=== PATIENT | male | born 1990 | race Caucasian/White ===

== ENCOUNTER 2020-11-11 07:53 | Emergency (ER) | payer BC ==
[2020-11-11] MEDS ORDERED: Sodium Chloride 0.9% 10 ML Syringe FLUSH PRN (08:31)
[2020-11-11] MEDS ORDERED: cefTRIAXone 2 GM in Sodium Chloride 0.9% 100 ML IV ONE (08:32)
--- NOTE | 2020-11-11 08:43 | EDM.PDOC ---
ED HPI GENERAL MEDICAL PROBLEM - General Chief Complaint: Skin Complaint Stated Complaint: LEFT EYE AND RT INDEX FINGER SWELLING Time Seen by Provider: 11/11/20 08:16 Source of Information: Reports: Patient, RN Notes Reviewed - History of Present Illness INITIAL COMMENTS - FREE TEXT/NARRATIVE: 30 yr old male with swollen inflamed painful R finger. This started about 2 or 3 days ago, has gotten much worse yesterday and today. Was seen a [facility] yesterday, started on amox. He scrapped his L leg, deep abrasion playing softball about 5 days ago. That has also been red, inflamed, quite uncomfortable. He has had some chills, night sweats, scrathy throat. This AM noticed medial L eye is all red. Not aware of any injury to the eye. Right Finger-Index Pain Score (Numeric/FACES): 8 Left Lower Leg Pain Score (Numeric/FACES): 8 - Related Data Allergies Allergy/AdvReac Type Severity Reaction Status Date / Time No Known Allergies Allergy Verified 11/11/20 08:15 Home Meds: Home Meds Amoxicillin/Potassium Clav [Amox-Clav 500-125 mg Tablet] 1 each PO DAILY 05/03 [History] Sulfamethoxazole/Trimethoprim [Bactrim Ds Tablet] 1 each PO BID #14 tablet 11/11/20 [Rx] cephALEXin [Cephalexin] 500 mg PO QID #40 capsule 11/11/20 [Rx] Past Medical History - Past Health History Medical/Surgical History: Denies Medical/Surgical History Social & Family History - Tobacco Use Tobacco Use Status *Q: Never Tobacco User - Recreational Drug Use Recreational Drug Use: No ED ROS GENERAL - Review of Systems Review Of Systems: See Below Constitutional: Reports: Chills, Night Sweats. Denies: Fever HEENT: Reports: Throat Pain (mild) Respiratory: Reports: Cough (occasional) Cardiovascular: Reports: No Symptoms GI/Abdominal: Reports: No Symptoms Musculoskeletal: Reports: Leg Pain Skin: Reports: Other (abrasions L lower leg) Neurological: Reports: Headache ED EXAM, SKIN/RASH Exam: See Below Exam Limited By: No Limitations General Appearance: Alert, No Apparent Distress Eye Exam: Left Eye: Other (subconjunctival hemorrhage L medial sclera) Throat/Mouth: Inflammation (mild, no exudate) Head: Atraumatic Neck: Supple Respiratory/Chest: No Respiratory Distress, Lungs Clear, Normal Breath Sounds Cardiovascular: Regular Rate, Rhythm Extremities: Joint Swelling (mid and distal R index finger very red, swollen, tender entire distal finger, pain with flexion and extension), Other (Large deep abrasion L ant lower leg and smaller abrasion distal L Lower leg, mild surrounding inflamation, post leg nontender, no drainage) Skin: Warm, Dry Course - Vital Signs Last Recorded V/S: Last Vital Signs Temp 98.7 F 11/11/20 08:11 Pulse 89 11/11/20 08:11 Resp 16 11/11/20 08:11 BP 131/78 11/11/20 08:11 Pulse Ox 100 11/11/20 08:11 - Orders/Labs/Meds Orders: Active Orders 24 hr Category Date Time Status Peripheral IV Insertion Adult [OM.PC] Stat Oth 11/11/20 08:31 Ordered Labs: Laboratory Tests 11/11/20 Range/Units 08:37 Group A Strep (PCR) Not detected (NOT DETECT) Meds: Medications Discontinued Medications Generic Name Dose Route Start Last Admin Trade Name Freq PRN Reason Stop Dose Admin Ceftriaxone Sodium 2 gm/ 100 mls @ 200 mls/hr 11/11/20 08:32 11/11/20 08:41 Sodium Chloride IV 11/11/20 09:01 200 mls/hr ONETIME ONE Administration Sodium Chloride 10 ml 11/11/20 08:31 11/11/20 08:41 Sodium Chloride 0.9% 10 Ml Syringe FLUSH 10 ml ASDIRECTED PRN Administration Keep Vein Open Trimethoprim/Sulfamethoxazole 1 tab 11/11/20 09:04 11/11/20 09:12 Sulfamethoxazole/Trimethoprim 800-160 Mg Tab PO 11/11/20 09:05 1 tab ONETIME ONE Administration Trimethoprim/Sulfamethoxazole 1 tab 11/11/20 09:05 11/11/20 09:12 Sulfamethoxazole/Trimethoprim 800-160 Mg Tab PO 11/11/20 09:06 1 tab ONETIME ONE Administration - Re-Assessments/Exams Free Text/Narrative Re-Assessment/Exam: 11/11/20 10:37 strep. was neg. Have given rocpehing 2 grams IV. Discharge instr. as documented. Have stressed the need for close Orthopedic follow up for what looks like serious R finger infection. Departure - Departure Time of Disposition: 09:40 Disposition: Home, Self-Care 01 Condition: Fair Clinical Impression: Subconjunctival hemorrhage of left eye Cellulitis Qualifiers: Site of cellulitis: other site Qualified Code(s): L03.818 - Cellulitis of other sites Leg abrasion Qualifiers: Encounter type: subsequent encounter Laterality: left Qualified Code(s): S80.812D - Abrasion, left lower leg, subsequent encounter - Discharge Information Prescriptions: Sulfamethoxazole/Trimethoprim [Bactrim Ds Tablet] 1 each PO BID #14 tablet cephALEXin [Cephalexin] 500 mg PO QID #40 capsule Instructions: Cellulitis, Adult, [id number], Abrasion, [id number], Subconjunctival Hemorrhage Referrals: PCP,None [Primary Care Provider] - Forms: ED Department Discharge Additional Instructions: You have been given rocephin 2 grams IV while here in the ED. Start Cephalexin 500 mg 4 times daily and Bactrim DS twice daily this evening and take both meds until gone. Prescriptions have been sent to [facility]. They are open to today 12 noon to [address] up with Dr Segura, Orthopedist here in [place] or Bri Newell at [facility] here in [place] Thursday or . if possible. Call [phone] for appt. right away tomorrow morning. If that doesn's work see Orthpedist at the [facility] Thursday or . this week. Call [phone] for appt. Return to ED as needed. Sepsis Event Note (ED) - Evaluation Sepsis Screening Result: No Definite Risk - Focused Exam Vital Signs: Vital Signs Temp Pulse Resp BP Pulse Ox 11/11/20 08:11 98.7 F 89 16 131/78 100 - My Orders Last 24 Hours: My Active Orders 11/11/20 08:31 Peripheral IV Insertion Adult [OM.PC] Stat - Assessment/Plan Last 24 Hours: My Active Orders 11/11/20 08:31 Peripheral IV Insertion Adult [OM.PC] Stat
[2020-11-11] MEDS ORDERED: Sulfamethoxazole/Trimethoprim 800-160 MG Tab PO ONE ×2 (09:04→09:05)
== END 2020-11-11 09:50 | disposition home or self-care (01) ==
LOC: JD.ED 07:53
DX: S80.812D Abrasion, left lower leg, subsequent encounter (principal); L03.011 Cellulitis of right finger; H11.32 Conjunctival hemorrhage, left eye; W50.4XXA Accidental scratch by another person, initial encounter; Y93.64 Activity, baseball
CPT/HCPCS: 87651; 96365; 99284; A9270; J0696

== ENCOUNTER 2020-11-11 18:57 | Emergency (ER) | payer BC ==
[2020-11-11] MEDS ORDERED: Ketorolac 30 MG/ML SDV IVPUSH ONE (20:01)
[2020-11-11] MEDS ORDERED: Sodium Chloride 0.9% 10 ML Syringe FLUSH PRN (20:01)
--- NOTE | 2020-11-11 20:26 | EDM.PDOC ---
ED HPI GENERAL MEDICAL PROBLEM - General Chief Complaint: Upper Extremity Injury/Pain Stated Complaint: FINGER SWELLING IS WORSE Time Seen by Provider: 11/11/20 19:17 Source of Information: Reports: Patient History Limitations: Reports: No Limitations - History of Present Illness INITIAL COMMENTS - FREE TEXT/NARRATIVE: 30-year-old male presents the emergency department with complaints of right index finger pain and swelling. This started about 2 or 3 days ago and has gotten worse yesterday and today. He was seen at the walk-in clinic yesterday and was started on amoxicillin at that time patient states that he was seen in the ER this morning and was given a dose of IV Rocephin and then discharged with prescription for Bactrim DS twice daily and Keflex 500 mg 4 times daily. It was also recommended that he follow-up with Dr. Segura, orthopedic surgeon here in [place] or the [facility] in [place] on Thursday or Thursday of this week for infection. He does not recall any cuts or scrapes on the finger that would caused him to have any infection. He said it developed spontaneously. He does have an abrasion noted to his left lower leg, he states this is from playing softball about 5 days ago. It is been red, inflamed and painful. He does have some erythema and edema noted to the dorsal aspect of the left foot and left ankle. He denies any pain to the left ankle. He states that this afternoon he developed pain and the right ankle and states it is very painful to walk or bear weight on this area. He denies any injury and states that the pain in the right ankle came on gradually. He reports fever and chills over the past couple of days as high as 101. He has been taking ibuprofen. He denies any nausea vomiting or diarrhea. He denies any history of staph infection such as MRSA in the past. Right Finger-Index Pain Score (Numeric/FACES): 7 - Related Data Allergies Allergy/AdvReac Type Severity Reaction Status Date / Time No Known Allergies Allergy Verified 11/11/20 08:15 Home Meds: Home Meds Sulfamethoxazole/Trimethoprim [Bactrim Ds Tablet] 1 each PO BID #14 tablet 11/11/20 [Rx] cephALEXin [Cephalexin] 500 mg PO QID #40 capsule 11/11/20 [Rx] Past Medical History - Past Health History Medical/Surgical History: Denies Medical/Surgical History Social & Family History - Tobacco Use Tobacco Use Status *Q: Never Tobacco User Second Hand Smoke Exposure: No - Recreational Drug Use Recreational Drug Use: No Review of Systems - Review of Systems Review Of Systems: Comprehensive ROS is negative, except as noted in HPI. ED EXAM, GENERAL - Physical Exam Exam: See Below Exam Limited By: No Limitations General Appearance: Alert, WD/WN, Mild Distress Eye Exam: Left Eye: Other (Subconjunctival hemorrhage left medial sclera) Ears: Normal External Exam, Hearing Grossly Normal Nose: Normal Inspection Throat/Mouth: Normal Inspection, Normal Lips, Normal Voice, No Airway Compromise Head: Atraumatic Neck: Normal Inspection, Supple Respiratory/Chest: No Respiratory Distress, No Accessory Muscle Use Cardiovascular: Normal Peripheral Pulses, Regular Rate, Rhythm Peripheral Pulses: 2+: Dorsalis Pedis (L), Dorsalis Pedis (R) GI/Abdominal: No Distention (Male) Exam: Deferred Rectal (Males) Exam: Deferred Back Exam: Normal Inspection Extremities: Joint Swelling (Right index finger very red, swollen and tender; painful with flexion and extension), Other (Large scabbed abrasion noted to lateral aspect of left lower leg; mild surrounding inflammation noted; edema and inflammation noted to left lateral ankle) Neurological: Alert, Oriented, Normal Cognition Psychiatric: Normal Affect, Normal Mood Skin Exam: Warm, Dry, Erythema (Right index finger), Increased Warmth (Right index finger), Wound/Incision (Large scabbed abrasion noted to lateral aspect of left lower leg; mild surrounding inflammation noted; edema and inflammation noted to left lateral ankle) Course - Vital Signs Text/Narrative:: As stated above patient presents with an infected right index finger that was initially treated with amoxicillin after being seen at the walk-in clinic at [place] yesterday. Was evaluated in the emergency department today and started on Bactrim DS and Keflex and was also given a dose of IV Rocephin while in the emergency department. Patient states that he feels that the finger has become more inflamed and painful throughout the day today. He also subsequently developed right ankle tenderness and inability to bear full weight on the area. Upon assessment there is no erythema or edema noted to the right ankle area. I did discuss with the patient that it likely will take 48 to 72 hours for him to notice an effect from the antibiotics that he has been taking. Due to the fact that the patient is now having pain in his right ankle I have elected to order labs on him. We will get a CBC, CMP and a C-reactive protein level. Patient will be given a dose of Toradol IV while in the emergency department. We will also obtain an x-ray of the right index finger. Last Recorded V/S: Last Vital Signs Temp 98.7 F 11/11/20 19:21 Pulse 71 11/11/20 19:21 Resp 16 11/11/20 19:21 BP 125/78 11/11/20 19:21 Pulse Ox 97 11/11/20 19:21 - Orders/Labs/Meds Orders: Active Orders 24 hr Category Date Time Status Sodium Chloride 0.9% [Saline Flush] Med 11/11/20 20:01 Active 10 ml FLUSH ASDIRECTED PRN Saline Lock Insert [OM.PC] Stat Oth 11/11/20 20:01 Ordered Medication Orders Sodium Chloride (Sodium Chloride 0.9% 10 Ml Syringe) 10 ml FLUSH ASDIRECTED PRN PRN Reason: Keep Vein Open Last Admin: 11/11/20 20:43 Dose: 10 ml [facility] Labs: Laboratory Tests 11/11/20 11/11/20 Range/Units 20:00 20:00 WBC 8.63 (4.23-9.07) K/mm3 RBC 4.91 (4.63-6.08) M/mm3 Hgb 14.8 (13.7-17.5) gm/dl Hct 42.8 (40.1-51.0) % MCV 87.2 (79.0-92.2) fl MCH 30.1 (25.7-32.2) pg MCHC 34.6 (32.2-35.5) g/dl RDW Std Deviation 40.7 (35.1-43.9) fL Plt Count 224 (163-337) K/mm3 MPV 9.8 (9.4-12.3) fl Neut % (Auto) 70.8 H (34.0-67.9) % Lymph % (Auto) 13.3 L (21.8-53.1) % [place] % (Auto) 13.4 H (5.3-12.2) % Eos % (Auto) 1.9 (0.8-7.0) Baso % (Auto) 0.5 (0.1-1.2) % Neut # (Auto) 6.11 H (1.78-5.38) K/mm3 Lymph # (Auto) 1.15 L (1.32-3.57) K/mm3 [place] # (Auto) 1.16 H (0.30-0.82) K/mm3 Eos # (Auto) 0.16 (0.04-0.54) K/mm3 Baso # (Auto) 0.04 (0.01-0.08) K/mm3 Sodium 141 (136-145) mEq/L Potassium 4.1 (3.5-5.1) mEq/L Chloride 104 (98-107) mEq/L Carbon Dioxide 27 (21-32) mEq/L Anion Gap 14.1 (5-15) BUN 16 (7-18) mg/dL Creatinine 1.2 (0.7-1.3) mg/dL Est Cr Clr Drug Dosing TNP Estimated GFR (MDRD) > 60 (>60) mL/min BUN/Creatinine Ratio 13.3 L (14-18) Glucose 114 H (70-99) mg/dL Calcium 9.0 (8.5-10.1) mg/dL Total Bilirubin 0.8 (0.2-1.0) mg/dL AST 15 (15-37) U/L ALT 26 (16-63) U/L Alkaline Phosphatase 74 (46-116) U/L C-Reactive Protein 7.6 H* (<1.0) mg/dL Total Protein 7.3 (6.4-8.2) g/dl Albumin 3.6 (3.4-5.0) g/dl Globulin 3.7 gm/dL Albumin/Globulin Ratio 1.0 (1-2) Meds: Medications Generic Name Dose Route Start Last Admin Trade Name Freq PRN Reason Stop Dose Admin Sodium Chloride 10 ml 11/11/20 20:11/11/20 20:43 Sodium Chloride 0.9% 10 Ml Syringe FLUSH 10 ml ASDIRECTED PRN Administration Keep Vein Open Discontinued Medications Generic Name Dose Route Start Last Admin Trade Name Freq PRN Reason Stop Dose Admin Ketorolac Tromethamine 30 mg 11/11/20 20:11/11/20 20:43 Ketorolac 30 Mg/Ml Sdv IVPUSH 11/11/20 20:02 30 mg ONETIME ONE Administration - Re-Assessments/Exams Free Text/Narrative Re-Assessment/Exam: 11/11/20 20:43 Hematology reveals a WBC of 8.63, hemoglobin 14.8, hematocrit 42.8, platelet count 224 Chemistry reveals a sodium of 141, potassium 4.1, anion gap 14.1, BUN 16, creatinine 1.2, glucose 114, C-reactive protein 7.6 11/11/20 21:40 Soft tissue swelling noted on right index finger xray. Formal radiologist report is pending. Patient will be discharged to home with recommendations that he follow-up with orthopedics as previously recommended on Thursday or Thursday of this week. He is to continue taking his Bactrim DS and Keflex as prescribed. Departure - Departure Time of Disposition: 21:42 Disposition: Home, Self-Care 01 Condition: Good Clinical Impression: Cellulitis Qualifiers: Site of cellulitis: other site Qualified Code(s): L03.818 - Cellulitis of other sites - Discharge Information Referrals: PCP,None [Primary Care Provider] - Forms: ED Department Discharge Additional Instructions: You were seen in the emergency department today with worsening swelling and inflammation and pain noted to your right index finger. Labs were completed which did not show an elevated white blood cell count. Your inflammatory markers were elevated which is to be expected. You may take ibuprofen 600 mg alternating with Tylenol 650 mg every 4 hours for the next 48 hours until the antibiotics fully take effect. Recommend that you call orthopedic surgeon Dr. Segura first thing tomorrow to get an appointment Thursday or Thursday to be evaluated, if you cannot get into see him recommend that you call [facility] [place]. Sepsis Event Note (ED) - Evaluation Sepsis Screening Result: No Definite Risk - Focused Exam Vital Signs: Vital Signs Temp Pulse Resp BP Pulse Ox 11/11/20 19:21 98.7 F 71 16 125/78 97 - My Orders Last 24 Hours: My Active Orders 11/11/20 20:01 Sodium Chloride 0.9% [Saline Flush] 10 ml FLUSH ASDIRECTED PRN Saline Lock Insert [OM.PC] Stat - Assessment/Plan Last 24 Hours: My Active Orders 11/11/20 20:01 Sodium Chloride 0.9% [Saline Flush] 10 ml FLUSH ASDIRECTED PRN Saline Lock Insert [OM.PC] Stat
--- NOTE | 2020-11-12 07:37 | CR ---
Right second finger: 3 views of the right second finger were obtained. Comparison: No previous study is available. Soft tissue swelling is identified. No acute fracture, dislocation or other bony abnormality is appreciated. Impression: 1. Soft tissue swelling. 2. No acute bony abnormality is seen. Diagnostic code #2
== END 2020-11-11 22:00 | disposition home or self-care (01) ==
LOC: JD.ED 18:57
DX: L03.011 Cellulitis of right finger (principal); R60.0 Localized edema; S80.812A Abrasion, left lower leg, initial encounter; X58.XXXA Exposure to other specified factors, initial encounter; Y93.64 Activity, baseball
CPT/HCPCS: 36415; 73140; 80053; 85025; 86140; 96374; 99283; J1885